=== PATIENT | female | born 1955 | race Caucasian/White ===

== ENCOUNTER → 2016-11-28 | Outpatient (CLI) | payer BC ==
[~2016-11-28] MED LIST: DEPO METHYLPREDNISOLONE 40 MG/ML SDV ONE; DEPO METHYLPREDNISOLONE 80 MG/ML SDV ONE; IOPAMIDOL (ISOVUE 370) 100 ML BTL IV ONE; LIDOCAINE 1% 30 ML SDV ONE; NA BICARBONATE 50 MEQ/50 ML VIAL ONE; ROPIVACAINE HCL 150 MG/30 ML INJ ONE
--- NOTE | 2016-11-28 14:39 | DX ---
Fluoroscopically Guided right hip Joint Injection With long acting anesthetic and steroid Clinical History: Right hip osteoarthritis. Prior hip injection provided symptomatic benefit. Crosscutting Measure #226: Current tobacco user: no. Fluoroscopy time: 0.2 minutes. 1 film. Entrance dose 5.2 mGy Technique: The patient was advised as to the risks, benefits, and alternatives of the procedure, and written consent was obtained and witnessed after all questions had been answered. The right hip was p repped and draped in the usual sterile fashion. 1% lidocaine was used subcutaneously as a local anest hetic. A 22-gauge spinal needle was advanced under fluoroscopy into the right hip joint. Omnipaque wa s injected to confirm appropriate tip positioning. Subsequently, 80 mg Depo-Medrol and 4 mL ropivacai ne was injected. The needle was removed. The patient tolerated the procedure well, and there were no immediate complications. Impression: Fluoroscopically guided right hip joint injection with long acting anesthetic and steroid .
== END ==
LOC: FIMAGING 12:59
PROVIDERS: ATTEND Orthopaedic Surgery
PROC: 3E0U3GC Introduction of Other Therapeutic Substance into Joints, Percutaneous Approach (ICD-10-PCS; principal; 2016-11-28)
DX: M16.11 Unilateral primary osteoarthritis, right hip (principal)
CPT/HCPCS: J1020; J2795; Q9967

== ENCOUNTER → 2019-01-20 | Outpatient (CLI) | payer OTHER | LOC: FIMAGING 17:08 | PROVIDERS: ATTEND Internal Medicine | DX: R51 Headache (principal); Z85.3 Personal history of malignant neoplasm of breast ==

== ENCOUNTER 2019-02-08 10:24 | Emergency (ER) | payer OTHER ==
--- NOTE | 2019-02-08 11:21 | EDPHY ---
H & P Stated Complaint: Dizzy, PINON Time Seen by Provider: 02/08/19 10:56 HPI/ROS: CHIEF COMPLAINT: Fatigue, headache for several months "I have all the symptoms of anemia" HISTORY OF PRESENT ILLNESS: 63-year-old female history of breast cancer via private vehicle complaining of fatigue, headache for the past 2-3 months. She has been seen by her primary care provider had a noncontrast CT of her head earlier this month which was negative. She notes no neurologic deficits or complaints but remained symptomatic for several months. Informs me that she spoke with her PCP who recommend she go to the ER for an MRI. She also does concerned that she may be anemic noting prior history of anemia believed to be secondary to upper GI bleed. Denies: abdominal pain, melena hematochezia, hemoptysis, dyspne , chest pain, syncope, near syncope PRIMARY CARE PROVIDER: REVIEW OF SYSTEMS: 10 systems reviewed and negative with the exception of the elements mentioned in the history of present illness PAST MEDICAL & SURGICAL HISTORY: breast cancer. SOCIAL HISTORY: Nonsmoker PHYSICAL EXAM (Prior to examination, patient consented to physical exam, hands were washed and my usual and customary physical exam procedures followed) 1) GENERAL: Well-developed, well-nourished, alert and oriented. Appears nontoxic 2) HEAD: Normocephalic, atraumatic 3) HEENT: Pupils equal, round, reactive to light bilaterally. Sclera anicteric. Nasopharynx, oropharynx, clear, no lesions. Moist Mucous membranes. 4) NECK: Full range of motion, no meningeal signs. 5) LUNGS: Clear auscultation bilaterally, no wheezes, no rhonchi, no retractions. 6) HEART: Regular rate and rhythm, no murmur, no heave, no gallop. 7) ABDOMEN: No guarding, no rebound, no focal tenderness, negative McBurney's, negative Magaña's, negative Rovsing's, negative peritoneal sign, 8) MUSCULOSKELETAL: Moving all extremities, no focal areas of tenderness, no obvious trauma. No peripheral edema or discoloration. 9) BACK: No CVA tenderness, no midline vertebral tenderness, no fluctuance, no step-off, no obvious trauma, no visual or palpable abnormality. 10) SKIN: No rash, no petechiae. 11) Psychiatric: Patient is oriented X 3, there is no agitation. 12) NEURO: Awake, alert, and oriented to person, place and time. Answers questions appropriately. There were no obvious focal neurologic abnormalities. No cerebellar dysfunction. Cranial nerves 2 through to 12 intact. Normal steady gait. Upper and lower extremities bilaterally with strength 5 / 5, reflexes 2+. DIFFERENTIAL DIAGNOSIS: In no particular order, including but not limited to subarachnoid hemorrhage, migraine headache, malignancy, tension headache and infectious causes such as meningitis, pharyngitis and sinusitis. - Personal History Current Tetanus/Diphtheria Vaccine: Unsure Current Tetanus Diphtheria and Acellular Pertussis (TDAP): Unsure Tetanus Vaccine Date: withyin last 10 years - Medical/Surgical History Hx Asthma: No Hx Chronic Respiratory Disease: No Hx Diabetes: No Hx Cardiac Disease: No Hx Renal Disease: No Hx Cirrhosis: No Hx Alcoholism: No Hx HIV/AIDS: No Hx Splenectomy or Spleen Trauma: No Other PMH: breast ca, left mastectomy, c section, right knee Sx, right hip replacement - Social History Smoking Status: Never smoked Constitutional: Initial Vital Signs Temperature (C) 36.8 C 02/08/19 10:26 Heart Rate 75 02/08/19 10:26 Respiratory Rate 18 02/08/19 10:26 Blood Pressure 122/61 H 02/08/19 10:26 O2 Sat (%) 97 02/08/19 10:26 O2 Delivery Mode Room Air Allergies/Adverse Reactions: No Known Allergies Allergy (Unverified 07/10/16 05:08) Home Medications: Medication Instructions Recorded QUEtiapine FUMARATE [Seroquel 50 50 mg PO HS 03/22/15 mg (*)] ALPRAZolam [Xanax 1 MG (*)] 0.5 - 1 mg PO HS PRN 07/10/16 Multivitamins [Multivitamin (*)] 1 each PO DAILY 07/10/16 Pantoprazole Sodium [Protonix 40mg 40 mg PO DAILY #14 tab 07/10/16 (*)] Medical Decision Making - Diagnostics Imaging Results: Imaging Impressions Brain MRI 02/08/19 11:21 Impression: Normal MRI of the brain without contrast. Results called to Bakari Aguilar PA-C, at 1:30 PM. Images myself ED Course/Re-evaluation: 11:20 a.m.: I reviewed the patient's old medical records. I reviewed her laboratory results with her in the room. Specifically , she was concerned about anemia and I reviewed her 01/22/2019 hemoglobin of 12.4 and hematocrit 39.0 with her. She notes fatigue for several months and headache for several months with history of breast cancer. She has a nonfocal exam. At this time I discussed with the patient my thought process and recommended MRI as well as rechecking blood work. Prior to ordering these I did inform her that these studies may be within normal limits in which case she may end up being discharged. However, I did recommend we perform the studies from particularly MRI of the brain given her history of breast cancer to evaluate for possible malignancy. She verbalized understanding of this. 1:39 p.m.: Patient was re-evaluated with serial exams was recently at this time. I discussed the negative MRI with radiologist. I also reviewed the images myself. I discussed these results with the patient at this time. Patient also requests a gastroenterology referral. She requests that I add LFTs to her laboratory studies which have been added. These will be followed up by her primary care provider and/or her drying machine operator . she has no abdominal pain other are subjectively or objectively. Doubt acute surgical abdominal pain. She she requests an iron infusion in the ER. I discussed that we are unable to perform iron infusions in the ER. I discussed her normal H&H in the ER today. She expresses her displeasure at not being able to received an iron infusion the ER and expresses her displeasure at not having the specific answer as to why she has been experiencing ongoing fatigue and headache for several months. Today is Sunday. I recommended she contact her PCP and her oncologist on Sunday for further evaluation. - Data Points Laboratory Results: Laboratory Results 02/08/19 12:21 02/08/19 12:21 02/08/19 02/08/19 02/08/19 12:21 12: 12:21 WBC 6.65 10^3/uL 10^3/uL (3.80-9.50) RBC 4.68 10^6/uL 10^6/uL (4.18-5.33) Hgb 13.0 g/dL g/dL (12.6-16.3) POC Hgb Hct 40.2 % % (38.0-47.0) POC Hct MCV 85.9 fL fL (81.5-99.8) MCH 27.8 pg L pg (27.9-34.1) MCHC 32.3 g/dL L g/dL (32.4-36.7) RDW 14.3 % % (11.5-15.2) Plt Count 351 10^3/uL 10^3/uL (150-400) MPV 9.3 fL fL (8.7-11.7) Neut % (Auto) 68.0 % % (39.3-74.2) Lymph % (Auto) 22.4 % % (15.0-45.0) [place] % (Auto) 8.1 % % (4.5-13.0) Eos % (Auto) 0.9 % % (0.6-7.6) Baso % (Auto) 0.3 % % (0.3-1.7) Nucleat RBC Rel Count 0.0 % % (0.0-0.2) Absolute Neuts (auto) 4.52 10^3/uL 10^3/uL (1.70-6.50) Absolute Lymphs (auto) 1.49 10^3/uL 10^3/uL (1.00-3.00) Absolute Monos (auto) 0.54 10^3/uL 10^3/uL (0.30-0.80) Absolute Eos (auto) 0.06 10^3/uL 10^3/uL (0.03-0.40) Absolute Basos (auto) 0.02 10^3/uL 10^3/uL (0.02-0.10) Absolute Nucleated RBC 0.00 10^3/uL 10^3/uL (0-0.01) Immature Gran % 0.3 % % (0.0-1.1) Immature Gran # 0.02 10^3/uL 10^3/uL (0.00-0.10) Turbidity POC Sodium Sodium 137 mEq/L mEq/L (135-145) POC Potassium Potassium 4.2 mEq/L mEq/L (3.5-5.2) POC Chloride Chloride 102 mEq/L mEq/L (97-110) Carbon Dioxide 25 mEq/l mEq/l (22-31) POC Total CO2 Anion Gap 10 mEq/L mEq/L (6-14) POC BUN BUN 16 mg/dL mg/dL (7-23) Creatinine 0.7 mg/dL mg/dL (0.6-1.0) POC Creatinine Estimated GFR > 60 Glucose 86 mg/dL mg/dL (70-100) POC Glucose Calcium 9.6 mg/dL mg/dL (8.5-10.4) Total Bilirubin 0.3 mg/dL mg/dL (0.1-1.4) Conjugated Bilirubin 0.3 mg/dL mg/dL (0.0-0.5) Unconjugated Bilirubin 0.0 mg/dL mg/dL (0.0-1.1) AST 27 IU/L IU/L (14-46) ALT 40 IU/L IU/L (9-52) Alkaline Phosphatase 125 IU/L IU/L (38-126) Total Protein 6.9 g/dL g/dL (6.3-8.2) Albumin 4.1 g/dL g/dL (3.5-5.0) Specimen Hemolysis 02/08/19 02/08/19 02/08/19 11:48 11:40 11:40 WBC REJ RBC REJ Hgb REJ POC Hgb 11.2 gm/dL L gm/dL (12.6-16.3) Hct REJ POC Hct 33 % L % (38-47) MCV REJ MCH REJ MCHC REJ RDW REJ Plt Count REJ MPV REJ Neut % (Auto) REJ Lymph % (Auto) REJ [place] % (Auto) REJ Eos % (Auto) REJ Baso % (Auto) REJ Nucleat RBC Rel Count REJ Absolute Neuts (auto) REJ Absolute Lymphs (auto) REJ Absolute Monos (auto) REJ Absolute Eos (auto) REJ Absolute Basos (auto) REJ Absolute Nucleated RBC REJ Immature Gran % REJ Immature Gran # REJ Turbidity REJ POC Sodium 140 mEq/L mEq/L (135-145) Sodium REJ POC Potassium 4.1 mEq/L mEq/L (3.3-5.0) Potassium REJ POC Chloride 104 mEq/L mEq/L (97-110) Chloride REJ Carbon Dioxide REJ POC Total CO2 26 mEq/L mEq/L (22-31) Anion Gap REJ POC BUN 16 mg/dL mg/dL (7-23) BUN REJ Creatinine REJ POC Creatinine 0.6 mg/dL mg/dL (0.6-1.0) Estimated GFR REJ Glucose REJ POC Glucose 89 mg/dL mg/dL (70-100) Calcium REJ Total Bilirubin Conjugated Bilirubin Unconjugated Bilirubin AST ALT Alkaline Phosphatase Total Protein Albumin Specimen Hemolysis REJ Point of Care Test Results: Chemistry 02/08/19 11:48 POC Sodium 140 mEq/L mEq/L (135-145) POC Potassium 4.1 mEq/L mEq/L (3.3-5.0) POC Chloride 104 mEq/L mEq/L (97-110) POC Total CO2 26 mEq/L mEq/L (22-31) POC BUN 16 mg/dL mg/dL (7-23) POC Creatinine 0.6 mg/dL mg/dL (0.6-1.0) POC Glucose 89 mg/dL mg/dL (70-100) ISTAT H&H 02/08/19 11:48 POC Hgb 11.2 gm/dL L gm/dL (12.6-16.3) POC Hct 33 % L % (38-47) Departure - Departure Disposition: Home, Routine, Self-Care Clinical Impression: Headache Qualifiers: Headache type: unspecified Headache chronicity pattern: chronic headache Intractability: not intractable Qualified Code(s): R51 - Headache Condition: Good Instructions: Acute Headache (ED) Additional Instructions: WE CANNOT ALWAYS FIND THE EXACT CAUSE OF YOUR SYMPTOMS DURING YOUR VISIT TO THE ED. RETURN TO THE ED IMMEDIATELY IF YOUR HEADACHE WORSENS, IF YOU DEVELOP A FEVER, NECK PAIN OR NECK STIFFNESS, OR IF YOU BECOME CONFUSED OR ABNORMALLY DROWSY. Referrals: Shraddha Rodrigues MD [Primary Care Provider] - 2-3 days, call for appt. Kevin West MD [Medical Doctor] - 2-3 days, call for appt. (Dr. Kevin West is a drying machine operator)
[2019-02-08 12:30] LABS: PLATELET COUNT 351 10^3/uL (150-400)
[2019-02-08] MEDS ORDERED: GADOBUTROL 10 ML VIAL IVP ONE (12:35)
[2019-02-08 14:08] VITALS: BP 109/55
== END 2019-02-08 14:14 | disposition home or self-care (01) ==
DX: R51 Headache (principal); Z85.3 Personal history of malignant neoplasm of breast
CPT/HCPCS: 82435-PO; 82565-PO; 82947-PO; 84132-PO; 84295-PO; 84520-PO; 85014-ER; A9585

== ENCOUNTER → 2019-02-14 | Outpatient (CLI) | payer OTHER | LOC: BMCIMAGING 15:55 | PROVIDERS: ATTEND Internal Medicine | DX: J98.4 Other disorders of lung (principal) ==

== ENCOUNTER → 2019-04-17 | Outpatient (CLI) | payer OTHER | LOC: FIMAGING 09:25 ==